=== PATIENT | male | born 1980 | race Caucasian/White ===

== ENCOUNTER 2017-08-31 09:05 | Emergency (ER) | payer OTHER ==
--- NOTE | 2017-08-31 09:17 | CPEKG ---
Heart Rate: 59 RR Interval: 1017 P-R Interval: 168 QRSD Interval: 102 QT Interval: 456 QTC Interval: 452 P De Leon: 56 QRS De Leon: 70 T Wave De Leon: 34 EKG Severity - NORMAL ECG - EKG Impression: SINUS RHYTHM Electronically Signed By: Nguyễn Villanueva 31-Aug-2017 09:38:36
[2017-08-31] MEDS ORDERED: NS 500 ML IV ONE (09:22)
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
[2017-08-31 09:46] LABS: PLATELET COUNT 176 10^3/uL (150-400)
[2017-08-31 10:53] VITALS: BP 135/94; PULSE 52; RESP 13; TEMP 98.1; O2SAT 96
== END 2017-08-31 10:55 | disposition home or self-care (01) ==
DX: R07.89 Other chest pain (principal); Z86.79 Personal history of other diseases of the circulatory system

== ENCOUNTER 2018-11-26 07:21 | Day surgery (SDC) | payer OTHER ==
[2018-11-26] MEDS ORDERED: LR 1,000 ML IV ONE (07:40)
[2018-11-26] MEDS ORDERED: MIDAZOLAM 2 MG/2 ML VIAL IVP ONE (07:54)
--- NOTE | 2018-11-26 07:54 | PDANEPAE ---
ANE Past Medical History - Cardiovascular History Hx Hypertension: No Hx Arrhythmias: Yes Hx Chest Pain: No Hx Coronary Artery / Peripheral Vascular Disease: No Hx CHF / Valvular Disease: No Hx Palpitations: No Cardiovascular History Comment: PAfib - Pulmonary History Hx COPD: No Hx Asthma/Reactive Airway Disease: No Hx Recent Upper Respiratory Infection: No Hx Oxygen in Use at Home: No Hx Sleep Apnea: Yes Sleep Apnea Screening Result - Last Documented: Positive - Neurologic History Hx Cerebrovascular Accident: No Hx Seizures: No Hx Dementia: No - Endocrine History Hx Diabetes: No - Renal History Hx Renal Disorders: No - Liver History Hx Hepatic Disorders: No - Neurological & Psychiatric Hx Hx Neurological and Psychiatric Disorders: Yes Neurological / Psychiatric History Comment: anxiety - Cancer History Hx Cancer: No - Congenital Disorder History Hx Congenital Disorders: No - GI History Hx Gastrointestinal Disorders: Yes Gastrointestinal History Comment: acid reflux - Other Health History Other Health History: none - Chronic Pain History Chronic Pain: No - Surgical History Prior Surgeries: 4 hip surgery femoroplasty and labral repairs ANE Review of Systems Review of Systems: - Exercise capacity METS (RN): 6 METS ANE Patient History - Allergies Allergies/Adverse Reactions: No Known Allergies Allergy (Unverified 08/31/17 09:10) - Home Medications Home Medications: Citalopram 08/31/17 [Last Taken 11/25/18] Pantoprazole Sodium 08/31/17 [Last Taken 11/26/18] Ibuprofen 11/20/18 [Last Taken 2 Weeks Ago ~11/12/18] Ceftin (*) 11/26/18 [Last Taken 11/26/18] - NPO status NPO Since - Liquids (Date): 11/26/18 NPO Since - Liquids (Time): 06:00 NPO Since - Solids (Date): 11/25/18 NPO Since - Solids (Time): 19:00 - Smoking Hx Smoking Status: Never smoked - Family Anes Hx Family Hx Anesthesia Complications: none ANE Labs/Vital Signs - Vital Signs Vital Signs: reviewed preoperatively; see RN documention for details Blood Pressure: 121/72 Heart Rate: 55 Respiratory Rate: 12 O2 Sat (%): 95 Height: 180.34 cm Weight: 83.461 kg ANE Physical Exam - Airway Neck exam: FROM Mallampati Score: Class 1 Mouth exam: normal dental/mouth exam - Pulmonary Pulmonary: clear to auscultation - Cardiovascular Cardiovascular: regular rate and rhythym - ASA Status ASA Status: II ANE Anesthesia Plan Anesthesia Plan: general endotracheal anesthesia
[2018-11-26] MEDS ORDERED: BACITRACIN ZINC 0.5 OZ OINTTUBE TP ONE (08:00)
[2018-11-26] MEDS ORDERED: LIDO/EPI 1% **Not for Epidural 20 ML MDV ONE (08:00)
[2018-11-26] MEDS ORDERED: EPINEPHrine 30 MG/30 ML MDV (0.1 MG/0.1 ML) ONE (08:00)
[2018-11-26] MEDS ORDERED: METHYLENE BLUE 0.5% 50 MG/10 ML AMP ONE ×2 (08:00→08:18)
[2018-11-26] MEDS ORDERED: ceFAZolin 2 GM/DEXTROSE 100 ML IV ONE (08:08)
--- NOTE | 2018-11-26 08:09 | PDHPUP ---
History & Physical Update H&P update statement: This history and physical update is based on an assessment of the patient which was completed after admission or registration (within 24 hours), but prior to the surgery/procedure. H&P update: H&P reviewed & patient examined, no change in patient's condition since H&P completed (had strep + last week. on augmentin. no sxs now, we discussed slight inc risk of bleeding with acute infection so recent though he wants to proceed. Informed consent obtained. )
[2018-11-26] MEDS ORDERED: REMIFENTANIL HCL 1 MG VIAL ONE ×2 (08:21→09:48)
[2018-11-26] MEDS ORDERED: PROPOFOL/EMULSION 500 MG/50 ML BOTTLE IV ONE ×4 (08:22→10:27)
[2018-11-26] MEDS ORDERED: PROPOFOL 200 MG/20 ML VIAL ONE (08:22)
[2018-11-26] MEDS ORDERED: fentaNYL 100 MCG/2 ML INJ ONE ×2 (08:22→11:46)
[2018-11-26] MEDS ORDERED: DEXAMETHASONE 4 MG/ML VIAL ONE ×3 (08:24→08:25)
[2018-11-26] MEDS ORDERED: ROCURONIUM 50 MG/5 ML VIAL ONE (08:37)
[2018-11-26] MEDS ORDERED: OXYMETAZOLINE 30 ML NASAL SPRAY ONE (08:47)
[2018-11-26] MEDS ORDERED: PETROLAT,WHT/MIN OIL/SOD CHL 3.5 GM OPHT.OINT ONE (09:05)
[2018-11-26] MEDS ORDERED: HYDROmorphONE/DILAUDID 2 MG/ML INJ ONE (09:12)
[2018-11-26] MEDS ORDERED: METOCLOPRAMIDE 10 MG/2 ML VIAL ONE (10:29)
[2018-11-26] MEDS ORDERED: ONDANSETRON 4 MG/2 ML VIAL ONE (10:29)
[2018-11-26] MEDS ORDERED: HYDROmorphONE/DILAUDID 1 MG/ML INJ IVP PRN (10:47)
[2018-11-26] MEDS ORDERED: oxyCODONE IR 5 MG TAB PO PRN (10:47)
[2018-11-26] MEDS ORDERED: NALOXONE HCL 0.4 MG/ML INJ IVP PRN (10:47)
[2018-11-26] MEDS ORDERED: METOCLOPRAMIDE 10 MG/2 ML VIAL IVP PRN (10:47)
[2018-11-26] MEDS ORDERED: ALBUTEROL 3 ML DEYVIAL IH PRN (10:47)
[2018-11-26] MEDS ORDERED: MEPERIDINE 25 MG/0.5 ML AMP IVP PRN (10:47)
[2018-11-26] MEDS ORDERED: DEXAMETHASONE 4 MG/ML VIAL IVP PRN (10:47)
[2018-11-26] MEDS ORDERED: DIAZEPAM 10 MG/2 ML SYR IVP PRN (10:47)
[2018-11-26] MEDS ORDERED: ACETAMINOPHEN 500 MG TAB PO PRN (10:47)
[2018-11-26] MEDS ORDERED: LR 500 ML IV PRN (10:47)
[2018-11-26] MEDS ORDERED: ONDANSETRON 4 MG/2 ML VIAL IVP PRN (10:47)
[2018-11-26] MEDS ORDERED: HYDROCODONE/APAP 5/325 TAB PO PRN (10:47)
[2018-11-26] MEDS ORDERED: PROMETHAZINE HCL 25 MG/ML INJ IVP PRN (10:47)
--- NOTE | 2018-11-26 11:01 | POSTOPPROG ---
Post Op Note Date of Operation: 11/26/18 Surgeon: Jannie Parker Anesthesiologist: MD Nati Anesthesia: Epidural, GET(General Endotracheal) Pre-op Diagnosis: LEVI, nasal obstruction, recurrent tonsillitis Post-op Diagnosis: same Procedure: tonsillectomy B, endoscopic assisted septoplasty, SMRT B Findings: 3+ tonsils, DNS L, large ITs B Inf/Abcess present in the surg proc area at time of surgery?: No EBL: 50-100 Complications: none apparent Bowel Protocol: N/A Clean Closure Performed: Yes Specimen(s): bilateral tonsils
[2018-11-26] MEDS ORDERED: hydrALAZINE 20 MG/ML VIAL IVP PRN (11:16)
[2018-11-26] MEDS ORDERED: hydrALAZINE 20 MG/ML VIAL ONE (11:46)
[2018-11-26] MEDS: fentaNYL 100 MCG/2 ML INJ IVP PRN ×3 (11:47→13:02)
--- NOTE | 2018-11-26 12:17 | POSTANESTH ---
Post Anesthetic Evaluation Cardiovascular Status: Normal, Stable Respiratory Status: Normal, Stable Level of Consciousness/Mental Status: Can Participate in Eval, Mildly Sleepy, Arousable Pain Control: Adequate, Prn Tx Ordered Nausea/Vomiting Control: Adequate, Prn Tx Ordered Complications Possibly Related to Anesthesia: None Noted
[2018-11-26] MEDS ORDERED: oxyCODONE ORAL SOLUTION 10 MG/0.5 ML UDSYR PO PRN (12:19)
[2018-11-26 16:39] VITALS: BP 139/78
== END 2018-11-26 16:40 | disposition home or self-care (01) ==
LOC: FSGY 07:21
PROVIDERS: ATTEND Otolaryngology
PROC: 0CTP0ZZ Resection of Tonsils, Open Approach (ICD-10-PCS; principal; 2018-11-26 08:45)
PROC: 09QM4ZZ Repair Nasal Septum, Percutaneous Endoscopic Approach (ICD-10-PCS; principal; 2018-11-26 08:45)
PROC: 09TL4ZZ Resection of Nasal Turbinate, Percutaneous Endoscopic Approach (ICD-10-PCS; principal; 2018-11-26 08:45)
DX: J34.2 Deviated nasal septum (principal); G47.33 Obstructive sleep apnea (adult) (pediatric); J34.3 Hypertrophy of nasal turbinates; J35.1 Hypertrophy of tonsils
CPT/HCPCS: J0171; J0360; J0690; J1100; J1170; J2250; J2405; J2704; J2765; J3010; Q9968